=== PATIENT | female | born 2000 | race Two or more races ===

== ENCOUNTER 2022-06-22 12:14 | Emergency (ER) | payer MEDICAID, SELFPAY ==
--- NOTE | 2022-06-22 13:10 | ED.GENADULT ---
HPI - General Adult General Chief complaint: Weakness <Nazia Sheldon CNP - Last Filed: 06/22/22 15:12> Stated complaint: not feeling well faint <Nazia Sheldon CNP - Last Filed: 06/22/22 15:12> Time Seen by Provider: 06/22/22 17:20 <Nazia Sheldon CNP - Last Filed: 06/22/22 15:12> Source: patient and manager delivery <JAMES Ruth - Last Filed: 06/22/22 18:51> Mode of arrival: ambulatory <JAMES Ruth Last Filed: 06/22/22 18:51> Limitations: no limitations <JAMES Ruth Last Filed: 06/22/22 18:51> History of Present Illness HPI narrative: 22-year-old otherwise healthy female presents to the ER for evaluation of intermittent dizziness, lightheadedness and feeling unwell for the last 1 month. 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 She states she has a decreased appetite is and bili eating or drinking much. She states she wakes up randomly with posterior headaches, she does not take any medications for this. She reports intermittent vision changes when she is dizzy like black spots. She reports fatigue and poor energy for 1 month. She denies weight loss or gain. No SOB or chest pain. No leg swelling, N/V/D or abdominal pains. No PCP. <JAMES Ruth - Last Filed: 06/22/22 18:51> MD complaint: fatigue, headaches, pre-syncope <JAMES Ruth - Last Filed: 06/22/22 18:51> Onset (ago): month(s) (1) <JAMES Ruth Last Filed: 06/22/22 18:51> Location: head <JAMES Ruth Last Filed: 06/22/22 18:51> Radiation: non-radiation <JAMES Ruth Last Filed: 06/22/22 18:51> Severity: moderate <JAMES Ruth Last Filed: 06/22/22 18:51> Severity scale (1-10): 5 <JAMES Ruth - Last Filed: 06/22/22 18:51> Quality: aching <JAMES Ruth - Last Filed: 06/22/22 18:51> Pain Consistency: intermittent <JAMES Ruth - Last Filed: 06/22/22 18:51> Relieving factors: none <JAMES Ruth - Last Filed: 06/22/22 18:51> Exacerbating factors: movement <JAMES Ruth - Last Filed: 06/22/22 18:51> Associated symptoms: headaches, loss of appetite and weakness <JAMES Ruth - Last Filed: 06/22/22 18:51> Treatments prior to arrival: none <JAMES Ruth - Last Filed: 06/22/22 18:51> Related Data Allergies/adverse reactions: Allergies Allergy/AdvReac Type Severity Reaction Status Date / Time No Known Allergies Allergy Verified 06/22/22 13:11 <Nazia Sheldon CNP - Last Filed: 06/22/22 15:12> Review of Systems Review of Systems: Yes all other systems are reviewed and are negative <JAMES Ruth - Last Filed: 06/22/22 18:51> [facility] Social History Social History: Social History Advance Directives: No Advance Directives Information Provided: No <Nazia Sheldon CNP - Last Filed: 06/22/22 15:12> Physical Exam ED Vital Signs: Vital Signs - 24 hr 06/22/22 13:11 06/22/22 17:04 06/22/22 18:06 Temperature 97.9 F 97.4 F Pulse Rate 92 77 76 Respiratory Rate 16 15 Blood Pressure 115/87 132/60 132/65 Pulse Oximetry 99 98 Oxygen Delivery Method Room Air Room Air 06/22/22 18:08 06/22/22 18:06 06/22/22 18:06 Temperature 98.0 F Pulse Rate 84 85 87 Respiratory Rate Blood Pressure 113/68 117/62 113/68 Pulse Oximetry 100 Oxygen Delivery Method Room Air BMI result Body Mass Index 23.9 <Nazia Sheldon CNP - Last Filed: 06/22/22 15:12> Vital Signs - 24 hr 06/22/22 13:11 06/22/22 17:04 06/22/22 18:06 Temperature 97.9 F 97.4 F Pulse Rate 92 77 76 Respiratory Rate 16 15 Blood Pressure 115/87 132/60 132/65 Pulse Oximetry 99 98 Oxygen Delivery Method Room Air Room Air 06/22/22 18:08 06/22/22 18:06 06/22/22 18:06 Temperature 98.0 F Pulse Rate 84 85 87 Respiratory Rate Blood Pressure 113/68 117/62 113/68 Pulse Oximetry 100 Oxygen Delivery Method Room Air BMI result Body Mass Index 23.9 <JMAES Ruth - Last Filed: 06/22/22 18:51> Appearance: Alert. Oriented X3. No acute distress. Eyes: Pupils equal, round and reactive to light. no nystagmus ENT: Pharynx normal. Neck: Normal inspection. Neck supple. CVS: Normal heart rate and rhythm. Pulses normal. Respiratory: No respiratory distress. Breath sounds normal. Abdomen: Soft and nontender. +BS x4 Skin: Skin warm and dry. Normal skin color. Normal skin turgor. No rashes. Extremities: No lower extremity edema. Neuro: Oriented X 3. No motor deficit. No sensory deficit. CN II-XII intact. Normal speech and cognition, steady gait. nonfocal <JAMES Ruth - Last Filed: 06/22/22 18:51> Course Course Course Narrative: This is an RME: Additional HPI, ROS, PE not included below will be deferred to primary provider. Patient is a 22 old female who presents to the emergency department for evaluation. She is complaining of < 2 years ago I got partial paralysis to the head of unknown etiology, but it improved without any procedures or medication, and at that time she was having symptoms similar to what she is experiencing now. Currently she is complaining of headache, intermittent vision changes, described as vision loss, weakness, lack of energy, and near syncope sensation. This has been occuring for 1 month, she has been unable to establish care with a new PCP. Symptoms are overall worse over the past 2-3 days. Plan: labs, viral testing, urinalysis, hcg <Nazia Sheldon CNP - Last Filed: 06/22/22 15:12> Reevaluation(s) Reevaluation #1: workup is unremarkable. history from prior may be due to complex migraine vs bells palsy. she is feeling better stable for d/c home. referrals for local PCPs provided <JAMES Ruth - Last Filed: 06/22/22 18:51> Medical Decision Making Differential Diagnosis Differential Diagnoses: The differential diagnosis associated with the presentation includes <JAMES Ruth - Last Filed: 06/22/22 18:51> mirgraine, atypical migraine, hypothyroidism, anemia, dehydration, metabolic derrangement, cardiac arrhythmia <JAMES Ruth - Last Filed: 06/22/22 18:51> Lab Data MDM Lab Attestation statement: I reviewed the patient's lab results. <JAMES Ruth - Last Filed: 06/22/22 18:51> unremarkable <JAMES Ruth - Last Filed: 06/22/22 18:51> Result Diagrams: 06/22/22 13:37 06/22/22 13:37 <Nazia Sheldon CNP - Last Filed: 06/22/22 15:12> Labs: Lab Results 06/22/22 06/22/22 06/22/22 Range/Units 13:34 13:34 13:35 WBC (4.8-10.8) X10*3/uL RBC (4.20-5.50) X10*6/uL Hgb (12.0-16.0) g/dl Hct (37.0-47.0) % MCV (80.0-98.0) fL MCH (27.0-33.0) pg MCHC (31.0-35.0) g/dl RDW (11.0-16.0) % Plt Count (160-400) X10*3/uL MPV (9.4-12.3) fL Immature Gran % (Auto) (0.0-0.4) % Neut % (Auto) (45-73) % Lymph % (Auto) (20-40) % [place] % (Auto) (2-11) % Eos % (Auto) (0-4) % Baso % (Auto) (0-2) % Lymph # (Auto) (1.2-4.9) X10*3/uL [place] # (Auto) (0.1-1.2) X10*3/uL Eos # (Auto) (0.0-0.4) X10*3/uL Baso # (Auto) (0.0-0.2) X10*3/uL Abs Immat Gran (auto) (0.00-0.03) X10*3/uL Absolute Neuts (auto) (2.0-8.3) x10*3/uL Absolute Nucleated RBC (0.0-0.012) X10*3/uL Nucleated RBC % (auto) (0.0-0.2) /100WBC Sodium (135-145) mmol/L Potassium (3.3-5.1) mmol/L Chloride (96-108) mmol/L Carbon Dioxide (22-29) mmol/L Anion Gap (12-20) BUN (9-16) mg/dL Creatinine (0.5-1.4) mg/dL Estim Creat Clear Calc Estimated GFR Random Glucose (60-115) mg/dL Calcium (8.4-10.2) mg/dL Magnesium (1.6-2.6) mg/dL Total Bilirubin (0.0-1.0) mg/dL AST (5-31) U/L ALT (0-31) U/L Alkaline Phosphatase (39-117) U/L Total Protein (6.5-8.0) g/dL Albumin (3.5-5.0) g/dL TSH (0.32-4.0) uIU/mL Urine Color Yellow Urine Appearance Clear Urine pH 6.5 (5.0-9.0) Ur Specific [place] 1.015 (1.005-1.025) Urine Protein Negative (Neg-Trace) mg/dL Urine Glucose (UA) Negative (Negative) mg/dL Urine Ketones Negative (Negative) mg/dL Urine Blood Negative (Negative) Urine Nitrite Negative (Negative) Ur Leukocyte Esterase Negative (Negative) Urine Test NEGATIVE (NEGATIVE) COVID-19 (PHILIP) (Negative) COVID-19 Clin Com Influenza Type A (SANDRA) Negative (Negative) Influenza Type B (SANDRA) Negative (Negative) Influenza A & B Note See Note 06/22/22 06/22/22 06/22/22 Range/Units 13:35 13:37 13:37 WBC 6.8 (4.8-10.8) X10*3/uL RBC 4.55 (4.20-5.50) X10*6/uL Hgb 14.5 (12.0-16.0) g/dl Hct 42.3 (37.0-47.0) % MCV 93.0 (80.0-98.0) fL MCH 31.9 (27.0-33.0) pg MCHC 34.3 (31.0-35.0) g/dl RDW 12.4 (11.0-16.0) % Plt Count 274 (160-400) X10*3/uL MPV 10.7 (9.4-12.3) fL Immature Gran % (Auto) 0.3 (0.0-0.4) % Neut % (Auto) 55.5 (45-73) % Lymph % (Auto) 36.5 (20-40) % [place] % (Auto) 5.0 (2-11) % Eos % (Auto) 1.8 (0-4) % Baso % (Auto) 0.9 (0-2) % Lymph # (Auto) 2.5 (1.2-4.9) X10*3/uL [place] # (Auto) 0.3 (0.1-1.2) X10*3/uL Eos # (Auto) 0.1 (0.0-0.4) X10*3/uL Baso # (Auto) 0.1 (0.0-0.2) X10*3/uL Abs Immat Gran (auto) 0.02 (0.00-0.03) X10*3/uL Absolute Neuts (auto) 3.8 (2.0-8.3) x10*3/uL Absolute Nucleated RBC 0.000 (0.0-0.012) X10*3/uL Nucleated RBC % (auto) 0.0 (0.0-0.2) /100WBC Sodium 140 (135-145) mmol/L Potassium 4.1 (3.3-5.1) mmol/L Chloride 105 (96-108) mmol/L Carbon Dioxide 29 (22-29) mmol/L Anion Gap 10 L (12-20) BUN 16 (9-16) mg/dL Creatinine 0.73 (0.5-1.4) mg/dL Estim Creat Clear Calc 98.3 Estimated GFR > 60 Random Glucose 91 (60-115) mg/dL Calcium 10.0 (8.4-10.2) mg/dL Magnesium 1.8 (1.6-2.6) mg/dL Total Bilirubin 0.4 (0.0-1.0) mg/dL AST 21 (5-31) U/L ALT 18 (0-31) U/L Alkaline Phosphatase 67 (39-117) U/L Total Protein 7.8 (6.5-8.0) g/dL Albumin 4.7 (3.5-5.0) g/dL TSH 1.60 (0.32-4.0) uIU/mL Urine Color Urine Appearance Urine pH (5.0-9.0) Ur Specific [place] (1.005-1.025) Urine Protein (Neg-Trace) mg/dL Urine Glucose (UA) (Negative) mg/dL Urine Ketones (Negative) mg/dL Urine Blood (Negative) Urine Nitrite (Negative) Ur Leukocyte Esterase (Negative) Urine Test (NEGATIVE) COVID-19 (PHILIP) Negative (Negative) COVID-19 Clin Com See Note Influenza Type A (SANDRA) (Negative) Influenza Type B (SANDRA) (Negative) Influenza A & B Note <Nazia Sheldon, CANDIDO - Last Filed: 06/22/22 15:12> Lab Results 06/22/22 06/22/22 06/22/22 Range/Units 13:34 13:34 13:35 WBC (4.8-10.8) X10*3/uL RBC (4.20-5.50) X10*6/uL Hgb (12.0-16.0) g/dl Hct (37.0-47.0) % MCV (80.0-98.0) fL MCH (27.0-33.0) pg MCHC (31.0-35.0) g/dl RDW (11.0-16.0) % Plt Count (160-400) X10*3/uL MPV (9.4-12.3) fL Immature Gran % (Auto) (0.0-0.4) % Neut % (Auto) (45-73) % Lymph % (Auto) (20-40) % [place] % (Auto) (2-11) % Eos % (Auto) (0-4) % Baso % (Auto) (0-2) % Lymph # (Auto) (1.2-4.9) X10*3/uL [place] # (Auto) (0.1-1.2) X10*3/uL Eos # (Auto) (0.0-0.4) X10*3/uL Baso # (Auto) (0.0-0.2) X10*3/uL Abs Immat Gran (auto) (0.00-0.03) X10*3/uL Absolute Neuts (auto) (2.0-8.3) x10*3/uL Absolute Nucleated RBC (0.0-0.012) X10*3/uL Nucleated RBC % (auto) (0.0-0.2) /100WBC Sodium (135-145) mmol/L Potassium (3.3-5.1) mmol/L Chloride (96-108) mmol/L Carbon Dioxide (22-29) mmol/L Anion Gap (12-20) BUN (9-16) mg/dL Creatinine (0.5-1.4) mg/dL Estim Creat Clear Calc Estimated GFR Random Glucose (60-115) mg/dL Calcium (8.4-10.2) mg/dL Magnesium (1.6-2.6) mg/dL Total Bilirubin (0.0-1.0) mg/dL AST (5-31) U/L ALT (0-31) U/L Alkaline Phosphatase (39-117) U/L Total Protein (6.5-8.0) g/dL Albumin (3.5-5.0) g/dL TSH (0.32-4.0) uIU/mL Urine Color Yellow Urine Appearance Clear Urine pH 6.5 (5.0-9.0) Ur Specific [place] 1.015 (1.005-1.025) Urine Protein Negative (Neg-Trace) mg/dL Urine Glucose (UA) Negative (Negative) mg/dL Urine Ketones Negative (Negative) mg/dL Urine Blood Negative (Negative) Urine Nitrite Negative (Negative) Ur Leukocyte Esterase Negative (Negative) Urine Test NEGATIVE (NEGATIVE) COVID-19 (PHLIIP) (Negative) COVID-19 Clin Com Influenza Type A (SANDRA) Negative (Negative) Influenza Type B (ASNDRA) Negative (Negative) Influenza A & B Note See Note 06/22/22 06/22/22 06/22/22 Range/Units 13:35 13:37 13:37 WBC 6.8 (4.8-10.8) X10*3/uL RBC 4.55 (4.20-5.50) X10*6/uL Hgb 14.5 (12.0-16.0) g/dl Hct 42.3 (37.0-47.0) % MCV 93.0 (80.0-98.0) fL MCH 31.9 (27.0-33.0) pg MCHC 34.3 (31.0-35.0) g/dl RDW 12.4 (11.0-16.0) % Plt Count 274 (160-400) X10*3/uL MPV 10.7 (9.4-12.3) fL Immature Gran % (Auto) 0.3 (0.0-0.4) % Neut % (Auto) 55.5 (45-73) % Lymph % (Auto) 36.5 (20-40) % [place] % (Auto) 5.0 (2-11) % Eos % (Auto) 1.8 (0-4) % Baso % (Auto) 0.9 (0-2) % Lymph # (Auto) 2.5 (1.2-4.9) X10*3/uL [place] # (Auto) 0.3 (0.1-1.2) X10*3/uL Eos # (Auto) 0.1 (0.0-0.4) X10*3/uL Baso # (Auto) 0.1 (0.0-0.2) X10*3/uL Abs Immat Gran (auto) 0.02 (0.00-0.03) X10*3/uL Absolute Neuts (auto) 3.8 (2.0-8.3) x10*3/uL Absolute Nucleated RBC 0.000 (0.0-0.012) X10*3/uL Nucleated RBC % (auto) 0.0 (0.0-0.2) /100WBC Sodium 140 (135-145) mmol/L Potassium 4.1 (3.3-5.1) mmol/L Chloride 105 (96-108) mmol/L Carbon Dioxide 29 (22-29) mmol/L Anion Gap 10 L (12-20) BUN 16 (9-16) mg/dL Creatinine 0.73 (0.5-1.4) mg/dL Estim Creat Clear Calc 98.3 Estimated GFR > 60 Random Glucose 91 (60-115) mg/dL Calcium 10.0 (8.4-10.2) mg/dL Magnesium 1.8 (1.6-2.6) mg/dL Total Bilirubin 0.4 (0.0-1.0) mg/dL AST 21 (5-31) U/L ALT 18 (0-31) U/L Alkaline Phosphatase 67 (39-117) U/L Total Protein 7.8 (6.5-8.0) g/dL Albumin 4.7 (3.5-5.0) g/dL TSH 1.60 (0.32-4.0) uIU/mL Urine Color Urine Appearance Urine pH (5.0-9.0) Ur Specific [place] (1.005-1.025) Urine Protein (Neg-Trace) mg/dL Urine Glucose (UA) (Negative) mg/dL Urine Ketones (Negative) mg/dL Urine Blood (Negative) Urine Nitrite (Negative) Ur Leukocyte Esterase (Negative) Urine Test (NEGATIVE) COVID-19 (PHILIP) Negative (Negative) COVID-19 Clin Com See Note Influenza Type A (SANDRA) (Negative) Influenza Type B (SANDRA) (Negative) Influenza A & B Note <JAMES Ruth - Last Filed: 06/22/22 18:51> Independent Interpretation I performed an independent interpretation of an: EKG <JAMES Ruth - Last Filed: 06/22/22 18:51> Interpretation: EKG normal sinus rhythm, HR 89 bpm, normal AL interval, normal QTc, no St segment elevations or depressions <JAMES Ruth - Last Filed: 06/22/22 18:51> Prescription Management I considered prescription management with: Pain Medication <JAMES Ruth - Last Filed: 06/22/22 18:51> Social Determinants Patient?s care significantly limited by Social Determinants of Health including: Other Social Determinant of Health <JAMES Ruth - Last Filed: 06/22/22 18:51> Critical Care Time Critical Care Time Critical Care Time: No <JAMES Ruth - Last Filed: 06/22/22 18:51> Discharge Plan Discharge Clinical Impression: Headache, Dizziness <Nazia Sheldon CNP - Last Filed: 06/22/22 15:12> Patient Disposition: Home, Self-Care <Nazia Sheldon CNP - Last Filed: 06/22/22 15:12> Instructions: Dizziness (ED), General Headache (ED) <Nazia Sheldon CNP - Last Filed: 06/22/22 15:12> Additional Instructions: Your workup today was normal Recommend rest, drink plenty of fluids Recommend following up with your primary care doctor Schultz trabajo de hoy fue normal. Recomendar reposo, beber mucho liquido Recomendar el seguimiento con schultz m?dico de atenci?n primaria <Nazia Sheldon CNP - Last Filed: 06/22/22 15:12> Stand Alone Forms: Work/School Release <Nazia Sheldon CNP - Last Filed: 06/22/22 15:12> Print Language: Armenian <Nazia Sheldon CNP - Last Filed: 06/22/22 15:12>
[2022-06-22 13:11] VITALS: BP 115/87; PULSE 92; RESP 16; TEMP 36.6; O2SAT 99; BMI 23.9
--- NOTE | 2022-06-22 13:16 | ECG_ITS ---
Test Reason : WEAKNESS Blood Pressure : / mmHG Vent. Rate : 089 BPM Atrial Rate : 089 BPM P-R Int : 132 ms QRS Dur : 072 ms QT Int : 342 ms P-R-T Axes : 038 078 048 degrees QTc Int : 416 ms Normal sinus rhythm Normal ECG No previous ECGs available Referred By: Nazia Sheldon Electronically Signed By:LORAINE FREGOSO
[2022-06-22 13:43] LABS: MANUAL DIFF FLAG NO
[2022-06-22 13:45] LABS: Basophils Absolute Auto 0.1 X10*3/uL (0.0-0.2); Basophils Percent Auto 0.9 % (0-2); Eosinophils Absolute Auto 0.1 X10*3/uL (0.0-0.4); Eosinophils Percent Auto 1.8 % (0-4); Hematocrit 42.3 % (37.0-47.0); Hemoglobin 14.5 g/dl (12.0-16.0); Imm Gran Abs Auto 0.02 X10*3/uL (0.00-0.03); Imm Gran Pct Auto 0.3 % (0.0-0.4); Lymphocytes Absolute Auto 2.5 X10*3/uL (1.2-4.9); Lymphocytes Percent Auto 36.5 % (20-40); Mean Corpuscular HGB Conc 34.3 g/dl (31.0-35.0); Mean Corpuscular Hemoglobin 31.9 pg (27.0-33.0); Mean Platelet Volume 10.7 fL (9.4-12.3); Monocytes Absolute Auto 0.3 X10*3/uL (0.1-1.2); Neutrophils Absolute Auto 3.8 x10*3/uL (2.0-8.3); Neutrophils Percent Auto 55.5 % (45-73); Platelet Count 274 X10*3/uL (160-400); Red Blood Count 4.55 X10*6/uL (4.20-5.50); Red Cell Distribution Width 12.4 % (11.0-16.0); White Blood Count 6.8 X10*3/uL (4.8-10.8)
[2022-06-22 13:51] LABS: Appearance Urine Clear; Color Urine Yellow; Glucose Urine UA Negative (Negative); Leukocyte Esterase Urine Negative (Negative); Nitrite Urine Negative (Negative); PH 6.5 (5.0-9.0); Specific Gravity - Urine 1.015 (1.005-1.025); Urine Blood Negative (Negative); Urine Ketones Negative (Negative); Urine Protein Negative (Neg-Trace)
[2022-06-22 13:52] LABS: UPreg QC Valid YES; Urine Pregnancy NEGATIVE (NEGATIVE)
[2022-06-22 14:01] LABS: COVID-19 Test Negative (Negative); IDNOW Serial# 16C4AD1C
[2022-06-22 14:02] LABS: IDNOW Serial# BCCEAD1C; Influenza A Negative (Negative); Influenza B2 Negative (Negative)
[2022-06-22 14:03] LABS: Alanine Aminotransferase 18 U/L (0-31); Albumin Level 4.7 g/dL (3.5-5.0); Alkaline Phosphatase 67 U/L (39-117); Anion Gap 10 (12-20); Aspartate Amino Transferase 21 U/L (5-31); Bilirubin Total 0.4 mg/dL (0.0-1.0); Blood Urea Nitrogen 16 mg/dL (9-16); Carbon Dioxide 29 mmol/L (22-29); Chloride 105 mmol/L (96-108); Creatinine Clr Calc Pharmacy 98.3; Estimated Glomerular Filt Rate > 60; Glucose Random 91 mg/dL (60-115); Magnesium 1.8 mg/dL (1.6-2.6); Potassium 4.1 mmol/L (3.3-5.1); Sodium 140 mmol/L (135-145); Total Protein 7.8 g/dL (6.5-8.0)
[2022-06-22 17:04] VITALS: BP 132/60; PULSE 77; RESP 15; TEMP 36.3; O2SAT 98
[2022-06-22 18:06] VITALS: BP 113/68; BP 117/62; BP 132/65; PULSE 76; PULSE 85; PULSE 87
[2022-06-22 18:08] VITALS: BP 113/68; PULSE 84; TEMP 36.7; O2SAT 100
== END 2022-06-22 18:51 | disposition home or self-care (01) ==
PROVIDERS: Nurse Practitioner Family; Physician Assistant; Emergency Provider Emergency Medicine Emergency Medical Services
DX: R51.9 Headache, unspecified (principal); R42 Dizziness and giddiness; Z20.822 Contact with and (suspected) exposure to COVID-19
CPT/HCPCS: 80053; 81003; 81025; 83735; 84443; 85025; 87502; 87635; 93005; 99283; 99284